=== PATIENT | female | born 1965 | race African-American/Black ===

== ENCOUNTER 2019-02-28 22:24 | Observation (INO) ==
[2019-02-28] MEDS ORDERED: NORMAL SALINE 1,000 ML IV PRN (23:27)
[2019-02-28] MEDS ORDERED: ONDANSETRON HCL/PF 2 MG/ML VIAL IV ONE (23:27)
[2019-02-28] MEDS ORDERED: HYDROmorphone HCL 1 MG/ML DISP.SYRIN IV ONE (23:27)
--- NOTE | 2019-02-28 23:40 | ERNOTE ---
Abdominal HPI - Narrative Date of Service: 02/28/19 - General Chief Complaint: Abdominal Pain Time Seen by Provider: 02/28/19 23:20 Source: patient - Immun/Allergies/Home Medications Immunizatons: IMMUNIZATION HX Immunizations Up to Date Yes History of Influenza Vaccine Yes Hx Pneumococcal Vaccination No Allergies/Adverse Reactions: Allergies codeine Adverse Reaction (Severe, Verified 02/28/19 23:02) Vomiting Home Medications: HOME MEDICATIONS Gabapentin [Neurontin] 600 mg PO TID 02/17/14 [Last Taken Unknown] Insulin Glargine,Hum.rec.anlog [Lantus] 63 units SC HS 02/17/14 [Last Taken Unknown] - History of Present Illness Narrative: This is a 53-year-old female who comes to the emergency department at 11:30 at night complaining of right upper quadrant abdominal pain. The patient says that she was seen earlier today at [facility] by a nurse practitioner in the clinic. She had an ultrasound performed which was concerning for cholecystitis. Apparently the patient went home or was called when she was home and was told to come up here. She was told to come up here if her symptoms got bad. Patient says that her pain is now at thousand out of 10. She has severe right upper quadrant pain. Is been there for at least 6 weeks and never gone away completely. She says it gets much worse after she has food. She says she cannot really eat due to the pain. She denies fever. She denies vomiting or diarrhea. The patient says that she was recently in the hospital at [facility] for 3 months "in a coma" she is complaining of pain in her left shoulder and the left subscapular area. Apparently Dr. Sherman from surgery was contacted by [facility]. Review of Systems - Review of Systems Constitutional: Present: no symptoms reported EYE: Present: no symptoms reported ENT: Present: no symptoms reported Respiratory: Present: no symptoms reported Cardiology: Present: no symptoms reported Gastrointestinal/Abdominal: Present: See HPI Genitourinary: Present: no symptoms reported Musculoskeletal: Present: no symptoms reported Skin: Present: no symptoms reported Neurological: Present: no symptoms reported Endocrine: Present: no symptoms reported Hematologic/Lymphatic: Present: no symptoms reported Psych: Present: no symptoms reported All Other Systems: All systems neg except as marked Medical History (Last Updated 02/28/19 @ 23:04 by Jeri Archer RN) Diabetes High blood pressure Surgical History: Surgical History (Last Updated 02/28/19 @ 23:04 by Jeri Archer RN) Hx of tonsillitis Hx of tubal ligation Social History: (Last Updated 02/28/19 @ 23:04 by Jeri Archer RN) Tobacco: Smoking Status: Former smoker Alcohol: alcohol intake: former Substance Use: substance use type: former substance user Physical Exam - Physical Exam General Appearance: Present: wd/wn, alert, no apparent distress Head Exam: Present: normal inspection, no evidence of injury Eye Exam: Normal inspection: bilateral, PERRL: bilateral, EOMI: bilateral Ears, Nose, Throat: Present: normal ENT inspection, normal pharynx Neck: Present: normal inspection Respiratory: Present: no respiratory distress, normal breath sounds, chest nontender, lungs clear Cardiovascular/Chest: Present: regular rate, rhythm, no murmur Gastrointestinal/Abdominal: Present: normal bowel sounds, nondistended, soft, other - Patient has significant pain to palpation on the right side of her abdomen, right upper much greater than right lower. Positive Urbina sign. Voluntary guarding. No rebound. Back Exam: Present: normal inspection, normal range of motion, no CVA tenderness, no vertebral tenderness Extremity Exam: Present: normal inspection, non-tender, normal range of motion, no edema Neurological Exam: Present: alert, oriented, other - Patient has some abnormal mentation, does not appear to understand questions I asked completely clearly. She relates this to her "being in a coma recently " Skin Exam: Present: normal color, warm/dry Lymphatic Exam: Present: no adenopathy Progress - Results and Orders Patient's Lab Results:: I have reviewed the patient's lab results. - Vital Signs Patient's Vital Signs:: I have reviewed the patient's vital signs. Vital Signs: Vital Signs 02/28/19 22:57 Temperature 36.7 C Pulse Rate 103 H Respiratory Rate 20 Blood Pressure 125/94 H O2 Sat by Pulse Oximetry 100 - CT/Ultrasound CT/Ultrasound Narrative: CT of the abdomen pelvis does not demonstrate any signs of acute intra-abdominal pathology. Does have some gallstones - Progress/Reassessment Chief Complaint: Abdominal Pain Plan - Plan Plan: After I saw the patient and evaluated her I spoke with Dr. Verdugo from surgery. Going to repeat the labs and get a CAT scan of the abdomen. The patient's CT scan is really not remarkable. White blood cell count is slightly elevated 11.1 up from earlier. Because of the degree of right upper quadrant pain I think cholecystitis is possible, but this would be chronic cholecystitis. We will admit the patient to the hospital and observed. Repeat labs in the morning. Dr. Sherman can see the patient in the morning as this is not something which requires emergent surgery CT scan shows stones but no signs of cholecystitis with a great deal of inflammation in the gallbladder fossa. Her white count is barely up at 11.1. It was 7 earlier today. Her symptoms are more consistent with chronic cholecystitis. She does have a Urbina sign. She does not require emergent intervention this evening nor antibiotics for possible infection at this time. I will put in a consult to surgery in the morning. Going to place in observation night. Pain medicine, fluids, nausea medicine as needed Departure Clinical Impression: Abdominal pain Qualifiers: Abdominal location: right upper quadrant Qualified Code(s): R10.11 - Right upper quadrant pain - Departure Disposition: Still a patient Condition: Stable
[2019-02-28 23:41] LABS: Hemoglobin 12.5 gm/dL (12.5-16.0); Mean Cell Volume 78.6 fl (78-100); Mean Corpuscular Hemoglobin 25.2 pg (27-31); Mean Corpuscular Hgb Conc 32.1 g/dl (32-36); Mean Platelet Volume 10.3 fl (8-12.5); Neutrophil # 8.5 K/mm3 (1.3-6.0); Neutrophil % 76.4 % (42-75.0); Platelet Count 257 K/mm3 (150-450); Red Blood Count 4.96 M/mm3 (4.2-5.4); Red Cell Distribution Width 16.5 % (11.5-14.0); White Blood Count 11.1 K/mm3 (4.0-10.5)
[2019-02-28] MEDS ORDERED: DIATRIZOATE MEGLUMINE, SODIUM 30 ML BTL PO ONE (23:43)
[2019-02-28 23:55] LABS: Albumin * 3.3 gm/dl (3.4-5.0); Anion Gap 14.8 mmol/L (6.8-13.8); BUN/Creatinine Ratio 17.6 (9.0-21.6); Bilirubin, Total 0.3 mg/dL (0.0-1.1); Ca. Corrected For Albumin 9.3 mg/dL (8.4-10.2); Calcium * 9.1 mg/dL (7.9-10.9); Carbon Dioxide 24.8 mmol/L (24-32.6); Potassium 3.6 mmol/L (3.4-4.6); Total Protein 7.4 gm/dL (6.2-8.2)
[2019-03-01] MEDS ORDERED: HYDROmorphone HCL 1 MG/ML DISP.SYRIN IV ONE ×2 (02:13→17:30)
[2019-03-01] MEDS ORDERED: ONDANSETRON HCL/PF 2 MG/ML VIAL IV PRN (02:18)
[2019-03-01] MEDS: HYDROmorphone HCL 1 MG/ML DISP.SYRIN IV PRN ×3 (05:52→21:54)
[2019-03-01 07:55] LABS: Hematocrit 36.5 % (37.0-47.0); Hemoglobin 11.6 gm/dL (12.5-16.0); Mean Cell Volume 79.2 fl (78-100); Mean Corpuscular Hemoglobin 25.2 pg (27-31); Mean Corpuscular Hgb Conc 31.8 g/dl (32-36); Mean Platelet Volume 10.5 fl (8-12.5); Neutrophil # 6.6 K/mm3 (1.3-6.0); Neutrophil % 78.8 % (42-75.0); Platelet Count 219 K/mm3 (150-450); Red Blood Count 4.61 M/mm3 (4.2-5.4); Red Cell Distribution Width 16.3 % (11.5-14.0); White Blood Count 8.4 K/mm3 (4.0-10.5)
[2019-03-01 08:06] LABS: Hemoglobin A1C 7.4 % (4.00-6.0)
[2019-03-01 08:07] LABS: Albumin * 3.1 gm/dl (3.4-5.0); Anion Gap 11.7 mmol/L (6.8-13.8); BUN/Creatinine Ratio 15.5 (9.0-21.6); Bilirubin, Total 0.4 mg/dL (0.0-1.1); Calcium * 8.6 mg/dL (7.9-10.9); Carbon Dioxide 25.9 mmol/L (24-32.6); Potassium 3.6 mmol/L (3.4-4.6); Total Protein 6.5 gm/dL (6.2-8.2)
--- NOTE | 2019-03-01 09:29 | HP ---
Chief Complaint - Chief Complaint Date of Service: 03/01/19 Time of Service: 07:30 Chief Complaint: Abdominal pain History of Present Illness: Ailin Deal is a 53-year-old black female who was admitted for right upper quadrant abdominal pain. She was seen in an outpatient clinic in [place] yesterday and had a CT scan done. That radiologist report was of cholelithiasis and thickened gallbladder suggestive of chronic cholecystitis. They contacted Dr. Sherman and he advised her to come to our emergency room for further evaluation. She showed up at 1130 last night and was reevaluated. Repeat CT scan shows a thickened duodenum suggestive of duodenitis. Dr. Sherman went off call at 7:00 this morning so I have referred her case now to Dr. Egan. She continues to be quite uncomfortable with this right upper quadrant pain this morning. She had a fairly good night thanks to several doses of IV morphine. She is n.p.o. She is an insulin-dependent diabetic. Her blood sugar this morning is 203 down from 237 on admission. She has not had any nausea or vomiting. This pain does radiate into her back and upper posterior shoulder. Her other past medical history is uneventful. Medical History (Last Reviewed 03/01/19 @ 02:42 by Navid Haynes RN) Diabetes High blood pressure Surgical History: Surgical History (Last Reviewed 03/01/19 @ 02:42 by Navid Haynes RN) Hx of tonsillitis Hx of tubal ligation Social History: (Last Reviewed 03/01/19 @ 02:42 by Navid Haynes RN) Tobacco: Smoking Status: Former smoker Alcohol: alcohol intake: former Substance Use: substance use type: former substance user Review Of Systems (GEN) - Review of Systems Generalized/Overall Review: Present: Malaise EENTM: Present: No Symptoms Reported Respiratory: Present: No Symptoms Reported Cardiac: Present: No Symptoms Reported Abdominal: Present: Abdominal Pain - In the right upper quadrant Genitourinary: Present: No Symptoms Reported Musculoskeletal: Present: No Symptoms Reported Neurological: Present: No Symptoms Reported Skin: Present: No Symptoms Reported Endocrine: Present: Other - Type 2 insulin-dependent diabetes mellitus Immunizations: IMMUNIZATION HX Immunizations Up to Date Yes History of Influenza Vaccine Yes Hx Pneumococcal Vaccination No Allergies/Adverse Reactions: Allergies Allergy/AdvReac Type Severity Reaction Status Date / Time codeine AdvReac Severe Vomiting Verified 02/28/19 23:02 Home Medications: HOME MEDICATIONS Gabapentin [Neurontin] 600 mg PO TID 02/17/14 [Last Taken Unknown] Insulin Glargine,Hum.rec.anlog [Lantus] 66 units SC HS 02/17/14 [Last Taken Unknown] Insulin Lispro [Humalog] 23 unit SQ TID 03/01/19 [Last Taken Unknown] Exam - Exam Vital Signs: Vital Signs - Last Taken Temp 36.7 C 03/01/19 02:43 Pulse 86 03/01/19 02:43 Resp 14 03/01/19 02:43 BP 143/85 H 03/01/19 02:43 Pulse Ox 99 03/01/19 02:43 Constitutional: Present: Alert, Oriented x3, Cooperative, Well developed, Well nourished, Mild distress, Middle aged, Obese - BMI 32.2 ENT Exam: Present: normal ENT inspection, hearing grossly normal, pharynx normal, TMs normal Eye Exam: bilateral eye: normal inspection, PERRL, EOMI Neck: Present: non-tender, full range of motion, supple, normal inspection, trachea midline Back Exam: Present: normal inspection Breasts: Present: Exam deferred Respiratory: Present: chest non-tender, lungs clear, normal breath sounds, no respiratory distress, no accessory muscle use Cardiovascular/Chest: Present: normal peripheral pulses, regular rate, rhythm, no chest tenderness, no edema, no gallop, no JVD, no murmur, no rub Peripheral Pulses: carotid (R): 2+, carotid (L): 2+, radial (R): 2+, radial (L): 2+ Abdomen: Present: Normal bowel sounds, soft, nontender, nondistended, no rebound tenderness, no hepatospenomegaly, no masses /Rectal: Present: Exam deferred Extremity: Present: normal range of motion, non-tender, normal inspection, no pedal edema, no calf tenderness, normal capillary refill Skin Exam: Present: normal color, warm/dry Lymphatic: Present: no adenopathy 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, normal cerebellar test, no motor/sensory deficits, alert, normal mood/affect Appearance: Present: appropriate appearance, appropriate insight, neat, no memory impairment Eye contact: Present: cooperative, good eye contact, normal speech Thoughts: Present: normal thought pattern, no apparent hallucination Diagnostic Studies: Abnormal Lab Results 02/28/19 02/28/19 03/01/19 Range/Units 23:35 23:35 07:40 WBC 11.1 H (4.0-10.5) K/mm3 Hgb 11.6 L (12.5-16.0) gm/dL Hct 36.5 L (37.0-47.0) % MCH 25.2 L 25.2 L (27-31) pg MCHC 31.8 L (32-36) g/dl RDW 16.5 H 16.3 H (11.5-14.0) % Neutrophils % 76.4 H 78.8 H (42-75.0) % Lymphocytes % 16.2 L 12.0 L (20-51) % Neutrophils # 8.5 H 6.6 H (1.3-6.0) K/mm3 Lymphocytes # 1.00 L (1.5-3.5) k/mm3 Anion Gap 14.8 H (6.8-13.8) mmol/L Random Glucose 239 H (70-110) mg/dL Hemoglobin A1c (4.00-6.0) % ALT 12 L (19-67) U/L Albumin 3.3 L (3.4-5.0) gm/dl 03/01/19 03/01/19 Range/Units 07:40 07:40 WBC (4.0-10.5) K/mm3 Hgb (12.5-16.0) gm/dL Hct (37.0-47.0) % MCH (27-31) pg MCHC (32-36) g/dl RDW (11.5-14.0) % Neutrophils % (42-75.0) % Lymphocytes % (20-51) % Neutrophils # (1.3-6.0) K/mm3 Lymphocytes # (1.5-3.5) k/mm3 Anion Gap (6.8-13.8) mmol/L Random Glucose 204 H (70-110) mg/dL Hemoglobin A1c 7.4 H (4.00-6.0) % ALT (19-67) U/L Albumin 3.1 L (3.4-5.0) gm/dl Laboratory Results WBC 8.4 K/mm3 (4.0-10.5) D 03/01/19 07:40 RBC 4.61 M/mm3 (4.2-5.4) 03/01/19 07:40 Hgb 11.6 gm/dL (12.5-16.0) L 03/01/19 07:40 Hct 36.5 % (37.0-47.0) L 03/01/19 07:40 MCV 79.2 fl (78-100) 03/01/19 07:40 MCH 25.2 pg (27-31) L 03/01/19 07:40 MCHC 31.8 g/dl (32-36) L 03/01/19 07:40 RDW 16.3 % (11.5-14.0) H 03/01/19 07:40 Plt Count 219 K/mm3 (150-450) 03/01/19 07:40 MPV 10.5 fl (8-12.5) 03/01/19 07:40 Immature Gran % (Auto) 0.20 % (0.001-0.429) 03/01/19 07:40 Immature Gran # (Auto) 0.02 K/mm3 (0.000-0.0310) 03/01/19 07:40 Neutrophils % 78.8 % (42-75.0) H 03/01/19 07:40 Lymphocytes % 12.0 % (20-51) L 03/01/19 07:40 Monocytes % 7.8 % (0.0-9) 03/01/19 07:40 Eosinophils % 0.8 % (0.0-3.0) 03/01/19 07:40 Basophils % 0.4 % (0.0-1.0) 03/01/19 07:40 Nucleated RBC % 0.0 k/mm3 (0-1) 03/01/19 07:40 Neutrophils # 6.6 K/mm3 (1.3-6.0) H 03/01/19 07:40 Lymphocytes # 1.00 k/mm3 (1.5-3.5) L 03/01/19 07:40 Monocytes # 0.7 k/mm3 (0.0-1.0) 03/01/19 07:40 Eosinophils # 0.1 k/mm3 (0.0-0.7) 03/01/19 07:40 Absolute Basophils 0.0 k/mm3 (0.0-0.1) 03/01/19 07:40 Sodium 139 mmol/L (132-142) 03/01/19 07:40 Plasma Sodium 141 mmol/L (130-142) 03/01/19 07:40 Potassium 3.6 mmol/L (3.4-4.6) 03/01/19 07:40 Chloride 105 mmol/L (97-106) 03/01/19 07:40 Carbon Dioxide 25.9 mmol/L (24-32.6) 03/01/19 07:40 Anion Gap 11.7 mmol/L (6.8-13.8) 03/01/19 07:40 BUN 11 mg/dL (3-23) 03/01/19 07:40 Creatinine 0.71 mg/dL (0.4-1.4) 03/01/19 07:40 Est GFR (Non-Af Amer) 110 mL/min (60-130) D 03/01/19 07:40 BUN/Creatinine Ratio 15.5 (9.0-21.6) 03/01/19 07:40 Random Glucose 204 mg/dL (70-110) H 03/01/19 07:40 Mean Blood Glucose 160 mg/dL 03/01/19 07:40 Hemoglobin A1c 7.4 % (4.00-6.0) H 03/01/19 07:40 Calcium 8.6 mg/dL (7.9-10.9) 03/01/19 07:40 Calcium Adj for Albumin 9.0 mg/dL (8.4-10.2) 03/01/19 07:40 Total Bilirubin 0.4 mg/dL (0.0-1.1) 03/01/19 07:40 AST 39 U/L (0-48) 03/01/19 07:40 ALT 23 U/L (19-67) 03/01/19 07:40 Alkaline Phosphatase 118 U/L (50-170) 03/01/19 07:40 Total Protein 6.5 gm/dL (6.2-8.2) 03/01/19 07:40 Albumin 3.1 gm/dl (3.4-5.0) L 03/01/19 07:40 Lipase 160 U/L (73-393) 02/28/19 23:35 Assessment/Plan - Narrative Narrative: 1. Keep n.p.o. 2. Refer to Dr. Egan for surgical management 3. Consider HIDA scan 4. Transfer medical management to Dr. Shepherd - Assessment/Plan (1) Abdominal pain Problem: Acute Qualifiers: Abdominal location: right upper quadrant Qualified Code(s): R10.11 - Right upper quadrant pain (2) Cholelithiasis Problem: Chronic Qualifiers: Cholelithiasis location: gallbladder Cholecystitis acuity: chronic Biliary obstruction: without biliary obstruction (3) Chronic cholecystitis Problem: Chronic (4) Duodenitis Problem: Acute (5) Insulin dependent type 2 diabetes mellitus Problem: Chronic
--- NOTE | 2019-03-01 09:33 | CONS ---
- Reason for consultation (1) Abdominal pain Date of Service: 03/01/19 (2) Duodenitis Date of Service: 03/01/19 HPI - General Date of Service: 03/01/19 Narrative: Abdominal pain Possible chronic cholecystitis Duodenitis Source: patient Exam Limitations: no limitations - History of Present Illness Initial Comments: Ailin states that the pain has been occurring for the past month. However it is gotten worse over the last few days. It hurts most in the right upper quadrant and radiates into her back. It is worse after eating. She has nausea without emesis. She feels constipated. She has never felt like this before. She denies taking NSAIDs. She feels worse this morning than she did yesterday. Timing/Duration: other - 1 month Severity: severe Modifying Factors - (Worsens): Reports: eating Modifying Factors - (Improves): Reports: medication, other - None Associated Symptoms: loss of appetite, nausea Allergies/Adverse Reactions: Allergies codeine Adverse Reaction (Severe, Verified 02/28/19 23:02) Vomiting Home Medications: Home Medications Medication Instructions Recorded Last Taken Gabapentin [Neurontin] 600 mg PO TID 02/17/14 Unknown Insulin Glargine,Hum.rec.anlog 66 units SC HS 02/17/14 Unknown [Lantus] Insulin Lispro [Humalog] 23 unit SQ TID 03/01/19 Unknown Procedures Administration of inrssrizpi-ybhskmi-snngqbkws, combined (05/12/12) Application of splint (09/08/11) Esophagogastroduodenoscopy [EGD] with closed biopsy (06/14/11) Medications - Medications Current Medications: Current Medications Hydromorphone HCl (Dilaudid) 1 mg IV Q2H PRN PRN Reason: Pain Stop: 03/31/19 02:31 Last Admin: 03/01/19 05:52 Dose: 1 mg Documented by: Sodium Chloride (Sodium Chloride 0.9%) 1,000 mls @ 999 mls/hr IV .Q1H1M PRN PRN Reason: HYDRATION Stop: 03/30/19 23:28 Last Infusion: 03/01/19 00:30 Dose: Infused Documented by: Review of Systems - Review of Systems Generalized/Overall Review: Present: Weakness, Malaise EENTM: Present: No Symptoms Reported Respiratory: Present: No Symptoms Reported Cardiac: Present: No Symptoms Reported Abdominal: Present: Nausea, Abdominal Pain, Constipation Genitourinary: Present: No Symptoms Reported Musculoskeletal: Present: No Symptoms Reported Neurological: Present: No Symptoms Reported Skin: Present: No Symptoms Reported Endocrine: Present: No Symptoms Reported Physical Examination - Exam Vital Signs: Vital Signs - Last Taken Temp 36.7 C 03/01/19 02:43 Pulse 86 03/01/19 02:43 Resp 14 03/01/19 02:43 BP 143/85 H 03/01/19 02:43 Pulse Ox 99 03/01/19 02:43 O2 Oxygen Delivery Method Room Air Constitutional: Present: Alert, Oriented x3, Cooperative ENT Exam: Present: hearing grossly normal Eye Exam: bilateral eye: normal inspection Neck: Present: supple Breasts: Present: Exam deferred Respiratory: Present: chest non-tender, lungs clear Cardiovascular/Chest: Present: normal peripheral pulses, regular rate, rhythm Abdomen: Present: Normal bowel sounds, soft, tender, positive Urbina sign. 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 Appearance: Present: appropriate appearance, appropriate insight Eye contact: Present: cooperative, good eye contact Thoughts: Present: normal thought pattern - Results and Findings: Lab/Microbiology results last 24 hrs: Abnormal/Pending Laboratory Last 24 HRS 03/01/19 03/01/19 03/01/19 07:40 07:40 07:40 WBC Hgb 11.6 L Hct 36.5 L MCH 25.2 L MCHC 31.8 L RDW 16.3 H Neutrophils % 78.8 H Lymphocytes % 12.0 L Neutrophils # 6.6 H Lymphocytes # 1.00 L Anion Gap Random Glucose 204 H Hemoglobin A1c 7.4 H ALT Albumin 3.1 L 02/28/19 02/28/19 23:35 23:35 WBC 11.1 H Hgb Hct MCH 25.2 L MCHC RDW 16.5 H Neutrophils % 76.4 H Lymphocytes % 16.2 L Neutrophils # 8.5 H Lymphocytes # Anion Gap 14.8 H Random Glucose 239 H Hemoglobin A1c ALT 12 L Albumin 3.3 L - Assessments/Findings (1) Abdominal pain Problem: Acute Qualifiers: Abdominal location: right upper quadrant Qualified Code(s): R10.11 - Right upper quadrant pain (2) Duodenitis Problem: Acute Plan - Plan Plan: US urgently EGD today possible sheri based on US, likely on an outpatient basis Reassuring that white blood cell count decreased. Dr. Melgar ordered a HIDA scan.
[2019-03-01] MEDS ORDERED: CEFOXITIN SODIUM 2 GM in DEXTROSE 5 % IN WATER 100 ML IV ONE ×2 (14:26)
--- NOTE | 2019-03-01 14:36 | ANES ---
Anesthesia Pre Procedure Eval Vitals/Labs: Last Vital Signs Temp 36.6 C 03/01/19 13:34 Pulse 81 03/01/19 13:34 Resp 16 03/01/19 13:34 BP 120/84 03/01/19 13:34 Pulse Ox 96 03/01/19 13:34 Hemoglobin A1c 7.4 % (4.00-6.0) H 03/01/19 07:40 HOME MEDICATIONS Gabapentin [Neurontin] 600 mg PO TID 02/17/14 [Last Taken Unknown] Insulin Glargine,Hum.rec.anlog [Lantus] 66 units SC HS 02/17/14 [Last Taken Unknown] Insulin Lispro [Humalog] 23 unit SQ TID 03/01/19 [Last Taken Unknown] Allergies/Adverse Reactions: Allergies Allergy/AdvReac Type Severity Reaction Status Date / Time codeine AdvReac Severe Vomiting Verified 02/28/19 23:02 - Planned Procedure Planned Procedure: ABD PAIN Medication List Reviewed:: Yes Allergies Verified: Yes Medical History (Last Reviewed 03/01/19 @ 14:33 by Mo Viveros CRNA) Diabetes High blood pressure Surgical History (Last Reviewed 03/01/19 @ 14:33 by Mo Viveros CRNA) Hx of tonsillitis Hx of tubal ligation - Family Anesthesia History Family History:: no untoward family reactions to anesthesia, no familial bleeding tendencies, no family history of clotting disorders, no family history of premature - Airway/Neck/Teeth Within Normal Limits:: Yes Teeth Condition: intact - one lower left loose tooth Mallampatti Score: 3 Thyromental (T-M) distance: > 6 cm Mandibulo Hyoid distance: > 3 cm - Respiratory Respiratory Physical: lungs clear Smoking Status: Former smoker - quit in october 2018 Sleep Apnea currently treated: No Sleep Apnea by current assessment: No - Cardiovascular Tolerate Activity: Fair Heart Sounds: S1 & S2, Regular - Anesthesia Assessment and Plan ASA Class: PS, II Anesthesia Type Plan: General ET
[2019-03-01] MEDS ORDERED: DEXAMETHASONE SODIUM PHOSPHATE 10 MG/ML VIAL ONE (14:44)
[2019-03-01] MEDS ORDERED: ONDANSETRON HCL/PF 2 MG/ML VIAL ONE (14:44)
[2019-03-01] MEDS ORDERED: PROPOFOL VIAL IV ONE (14:44)
[2019-03-01] MEDS ORDERED: KETOROLAC TROMETHAMINE 30 MG/ML VIAL ONE (14:44)
[2019-03-01] MEDS ORDERED: SUCCINYLCHOLINE CHLORIDE 20 MG/ML VIAL ONE (14:45)
[2019-03-01] MEDS ORDERED: BUPIVACAINE HCL/EPINEPHRINE 50 ML VIAL ONE (14:51)
[2019-03-01] MEDS ORDERED: RINGER'S SOLUTION,LACTATED 1,000 ML IV PRN (15:58)
[2019-03-01] MEDS ORDERED: BUPIVACAINE HCL/EPINEPHRINE 50 ML VIAL IJ ONE (15:58)
[2019-03-01] MEDS ORDERED: fentaNYL CITRATE/PF 50 MCG/ML AMPUL ONE (16:37)
--- NOTE | 2019-03-01 16:41 | ANES ---
Post Anesthesia Discharge - Transfer of Care Transfer of Care handoff given to nurse: Yes - Discharge from PACU Discharge from PACU when meets criteria: Yes - Comfortable post fentanyl
--- NOTE | 2019-03-01 16:43 | OR ---
Operative Report - Dictated Report Narrative: Date of Service: 03/01/19 Procedure: laparoscopic cholecystectomy and EGD with biopsy Pre-procedure diagnosis: Acute cholecystitis, thickening of duodenum Post-procedure diagnosis: Acute cholecystitis, normal duodenum Surgeon: Dr. Laura Egan Anesthesia: general Indication for procedure: Ailin is a very pleasant 53-year-old female who has right upper quadrant pain radiating into her back this is been going on for a month but has gotten worse over the last few days. She had a CT scan which showed thickening of the duodenum. She had an ultrasound which showed acute cholecystitis. Description of procedure: After appropriate informed consent was obtained patient was taken to the operating room, placed in the supine position. She was given a dose of Mefoxin preoperatively. General anesthesia was achieved. The patient was prepped and draped in the usual sterile fashion. A 5 mm periumbilical incision was made, hemostat was used to dissect down to the fascia. A Veress needle was inserted, a saline drop test was performed which was satisfactory. The abdomen was insufflated to 15 mmHg. A 5mm blunt trocar was placed at the umbilicus. The camera was inserted, there was no evidence of a trocar injury. An 11 mm trocar was placed in subxiphoid position. A 5 mm trocar was placed in the right upper quadrant. An additional 5 mm trocar was placed in the right upper lateral quadrant The patient was placed in a head up, rotated left position, to facilitate exposure. The gallbladder was identified, and was elevated over the liver. The gallbladder was very inflamed and difficult to grasp. I attempted to aspirate the gallbladder but it would not be aspirated. The cystic duct was identified and was dissected out, this was directly entering the gallbladder. The cystic artery was then identified, it was directly entering the gallbladder. There were 3 clips placed on the stay side of the cystic duct, 1 clip was placed on the gallbladder side, the cystic duct was then transected. The cystic artery had 2 clips placed on the stay side, 1 on the gallbladder side. The EndoShears were used to transect the cystic artery. The gallbladder was then removed from the liver bed using electrocautery. The gallbladder was placed in an Endo Catch bag, and removed through the subxiphoid port. The liver was inspected and hemostasis was achieved. The area over the liver was irrigated until clear. The remainder of the abdomen was inspected and was satisfactory. The xiphoid trocar site was closed with an 0 Vicryl suture using a PMI device. The abdomen was desufflated. Local anesthetic was injected. The incisions were closed with inverted interrupted 4-0 Monocryl sutures. Mastisol and Steri-Strips were applied. Under the same sedation an EGD was done. A lubricated gastroscope was inserted and advanced into the second portion of the duodenum. The scope was slowly withdrawn, the duodenum appeared normal. The scope was withdrawn to the antrum. An antral biopsy was taken. A biopsy for Maki was also taken. The scope was retroflexed, the stomach appeared normal. The body of the stomach also appeared normal. Scope was slowly withdrawn to the GE junction, the Z line appeared normal. The excess air was suctioned and the scope was slowly removed. The patient tolerated the procedure well and was transported to the PACU in satisfactory condition. Estimated blood loss: minimal Complications: none Specimens to pathology: Gallbladder, Maki, Antrum Disposition: She will be admitted back to the floor for observation.
[2019-03-01] MEDS ORDERED: POTASSIUM CHLORIDE 20 MEQ in DEXTROSE 5%-0.5 NORMAL SALINE 990 ML IV SCH (16:45)
[2019-03-01] MEDS ORDERED: HYDROmorphone HCL 2 MG/ML VIAL IV ONE (16:50)
[2019-03-01] MEDS ORDERED: HYDROmorphone HCL 2 MG/ML VIAL ONE (16:58)
[2019-03-01] MEDS: HYDROmorphone HCL 1 MG/ML DISP.SYRIN IM ONE ×2 (16:59→17:15)
[2019-03-01] MEDS ORDERED: INSULIN REGULAR, HUMAN 100 UNITS/ML VIAL SC SCH (17:00)
--- NOTE | 2019-03-01 17:18 | ANES ---
Post Anesthesia Assessment - Vital Signs Vitals: Last Vital Signs Temp 37.1 C 03/01/19 17:05 Pulse 102 H 03/01/19 17:05 Resp 14 03/01/19 17:05 BP 143/88 H 03/01/19 17:05 Pulse Ox 98 03/01/19 17:05 Airway Patency: Normal - Mental Status Level Of Consciousness: Awake, Alert, Appropriate - Pain Level Pain Score: 10 - either snoring or C/co pain 100-100,000,000 on a scale of 0-10 - N/V Assessment Nausea/Vomiting Presence: None Dehydration:: No
[2019-03-01] MEDS: HYDROcodone/ACETAMINOPHEN 1 EACH TABLET PO PRN (19:15)
[2019-03-01] MEDS: IBUPROFEN 800 MG TABLET PO PRN (21:53)
[2019-03-02] MEDS: HYDROcodone/ACETAMINOPHEN 1 EACH TABLET PO PRN ×3 (01:31→20:29)
[2019-03-02] MEDS: IBUPROFEN 800 MG TABLET PO PRN ×2 (04:42→23:14)
--- NOTE | 2019-03-02 08:12 | PN ---
Dictated Progress Note - Date and Time Seen: Date: 03/02/19 Time: 08:11 - Progress Note Narrative: feeling better than yesterday. no n/v. Still having too much pain to go home. doesn't feel ready and doesn't have help at home Vital Signs - Last Taken Temp 36.8 C 03/02/19 06:55 Pulse 88 03/02/19 06:55 Resp 16 03/02/19 06:55 BP 127/77 03/02/19 06:55 Pulse Ox 98 03/02/19 06:55 Culture 03/01/19 16:45 CLOtest - Final Biopsy Imp: POD#1 lap sheri acute sheri Plan: likely dc tomorrow
--- NOTE | 2019-03-02 12:22 | PN ---
Subjective - Date and Time Seen Date: 03/02/19 Time: 10:28 Subjective Narrative: Patient currently states she feels better than she did yesterday, though she is endorsing significant abdominal pain and discomfort still. Patient appears to be comfortable while playing on her phone. Her vital signs been stable she been afebrile. No acute events overnight. Objective - Review of Systems Generalized/Overall Review: Denies: Weakness, Chills, Fever EENTM: Reports: No Symptoms Reported Respiratory: Reports: No Symptoms Reported Cardiac: Reports: No Symptoms Reported Abdominal: Reports: Nausea, Abdominal Pain. Denies: Vomiting Genitourinary Symptoms: Reports: No Symptoms Reported Musculoskeletal Complaints: Reports: No Symptoms Reported Neurological: Reports: No Symptoms Reported Skin: Reports: No Symptoms Reported Endocrine: Reports: No Symptoms Reported - Vitals Vitals: Last Vital Signs Temp 36.4 C 03/02/19 11:26 Pulse 83 03/02/19 11:26 Resp 18 03/02/19 11:26 BP 120/66 03/02/19 11:26 Pulse Ox 98 03/02/19 11:26 - Exam Constitutional: Present: Alert, Oriented x3, Obese ENT Exam: Present: hearing grossly normal, TMs normal. Absent: nasal congestion, nasal drainage Neck: Present: non-tender, supple Respiratory: Present: lungs clear, normal breath sounds Cardiovascular/Chest: Present: regular rate, rhythm, no edema Abdomen: Present: soft, nondistended, tender - Diffuse tenderness throughout. Absent: guarding, rigidity Skin Exam: Present: normal color, warm/dry Appearance: Present: appropriate appearance, appropriate insight Eye contact: Present: cooperative, good eye contact Thoughts: Present: normal thought pattern Assessment/Plan Plan Narrative: Patient's case discussed with Dr. Egan this a.m. Determined that her pain is extensive and intractable and to be better to keep her here 1 more day to transition her from IV pain medicine to oral pain medicine. Will discontinue the hydromorphone and continue the [place] which Dr. Schafer started. She also has ibuprofen as needed. Restarted her insulin at her home regimen as well as a consistent carbohydrate diet. Otherwise her vital signs been stable she is been afebrile. No repeat lab work at this time as her lab work normalized yesterday including a return to normal white count. Patient likely discharged home tomorrow, nurse to call with questions or concerns. - Problems/Diagnosis (1) Abdominal pain Problem: Acute Qualifiers: Abdominal location: right upper quadrant Qualified Code(s): R10.11 - Right upper quadrant pain (2) Chronic cholecystitis Problem: Chronic (3) Insulin dependent type 2 diabetes mellitus Problem: Chronic
[2019-03-02] MEDS: INSULIN LISPRO 100 UNITS/ML VIAL SC SCH (16:59)
[2019-03-02] MEDS: GABAPENTIN 300 MG CAPSULE PO SCH (16:59)
[2019-03-02] MEDS ORDERED: INSULIN GLARGINE,HUM.REC.ANLOG 100 UNITS/ML VIAL SC SCH (21:00)
[2019-03-03] MEDS: HYDROcodone/ACETAMINOPHEN 1 EACH TABLET PO PRN ×2 (05:00→11:28)
[2019-03-03] MEDS: INSULIN LISPRO 100 UNITS/ML VIAL SC SCH (08:07)
[2019-03-03] MEDS: GABAPENTIN 300 MG CAPSULE PO SCH (08:14)
--- NOTE | 2019-03-03 09:21 | PN ---
Dictated Progress Note - Date and Time Seen: Date: 03/03/19 Time: 09: - Progress Note Narrative: pt looks much better. tolerating a diet. sitting up in chair. Vital Signs - Last Taken Temp 36.9 C 03/03/19 06:15 Pulse 81 03/03/19 06:15 Resp 18 03/03/19 06:15 BP 134/75 03/03/19 06:15 Pulse Ox 98 03/03/19 06:15 Culture 03/01/19 16:45 CLOtest - Final Biopsy NAD abd soft, non distended, I clean dry and intact non labored Imp POD#2 lap sheri Plan pt concerned about dc as her grandchildren live with her and are loud and she doesn't think she has a place to rest. Discussed that her pain will continue to improve daily and she should use a stool softener and drink water.
--- NOTE | 2019-03-03 10:47 | DS ---
Date of Discharge:: 03/03/19 Description of Stay: Obtained via chart review. Patient had been having RUQ pain for a month, and CT done in [place] showed cholelithiasis, and she was referred to our facility. She was evaluated by the surgical team, and underwent laparoscopic cholecystectomy and EGD with biopsy on 03/01. She reported significant pain the day after surgery, and stayed an additional night for pain control. On the day of DC, she did not have objective signs of pain, with normal vital signs. She was tolerating a diet, and her incisions were clean, dry, and intact. Procedures Performed: see notes below - laparoscopic cholecystectomy and EGD with biopsy Results and Findings: Lab Pending Results 02/28/19 23:35: WBC 11.1 H, RBC 4.96, Hgb 12.5, Hct 39.0, MCV 78.6, MCH 25.2 L, MCHC 32.1, RDW 16.5 H, Plt Count 257, MPV 10.3, Immature Gran % (Auto) 0.30, Immature Gran # (Auto) 0.03, Neutrophils % 76.4 H, Lymphocytes % 16.2 L, Monocytes % 6.0, Eosinophils % 0.8, Basophils % 0.3, Nucleated RBC % 0.0, Neutrophils # 8.5 H, Lymphocytes # 1.79, Monocytes # 0.7, Eosinophils # 0.1, Absolute Basophils 0.0 02/28/19 23:35: Sodium 140, Plasma Sodium 142, Potassium 3.6, Chloride 104, Carbon Dioxide 24.8, Anion Gap 14.8 H, BUN 15, Creatinine 0.85, Est GFR (Non-Af Amer) 90 D, BUN/Creatinine Ratio 17.6, Random Glucose 239 H, Calcium 9.1, Calcium Adj for Albumin 9.3, Total Bilirubin 0.3, AST 10, ALT 12 L, Alkaline Ph osphatase 103, Total Protein 7.4, Albumin 3.3 L, Lipase 160 03/01/19 07:40: WBC 8.4 D, RBC 4.61, Hgb 11.6 L, Hct 36.5 L, MCV 79.2, MCH 25.2 L, MCHC 31.8 L, RDW 16.3 H, Plt Count 219, MPV 10.5, Immature Gran % (Auto) 0.20, Immature Gran # (Auto) 0.02, Neutrophils % 78.8 H, Lymphocytes % 12.0 L, Monocytes % 7.8, Eosinophils % 0.8, Basophils % 0.4, Nucleated RBC % 0.0, Neutr ophils # 6.6 H, Lymphocytes # 1.00 L, Monocytes # 0.7, Eosinophils # 0.1, Absolute Basophils 0.0 03/01/19 07:40: Sodium 139, Plasma Sodium 141, Potassium 3.6, Chloride 105, Ca rbon Dioxide 25.9, Anion Gap 11.7, BUN 11, Creatinine 0.71, Est GFR (Non-Af Amer) 110 D, BUN/Creatinine Ratio 15.5, Random Glucose 204 H, Calcium 8.6, Calcium Adj for Albumin 9.0, Total Bilirubin 0.4, AST 39, ALT 23, Alkaline Phosphatase 118, Total Protein 6.5, Albumin 3.1 L 03/01/19 07:40: Mean Blood Glucose 160, Hemoglobin A1c 7.4 H 03/01/19 16:45: Pathology Specimen Sent to path Discharge Location: Home Disposition: Home self-care Condition: Stable Discharge Activity: Activity as tolerated Discharge Diet: Low fat/chol Referrals: Laura Egan DO [Staff Physician] - One Week Zaid Melgar DO [Primary Care Provider] - One Week Prescriptions (Any new or edited meds): HYDROcodone/ACETAMINOPHEN [[place] 5-325] 2 ea PO Q6H PRN #24 tab PRN Reason: Moderate Pain (Pain Scale 4-6) Transmission Status: Received by [facility] #[id number] Complete Home Medications List: Complete Home Medication List: Gabapentin [Neurontin] 600 mg PO TID 02/17/14 Insulin Glargine,Hum.rec.anlog [Lantus] 66 units SC HS 02/17/14 Insulin Lispro [Humalog Kwikpen U-100] 23 unit SQ TID 03/01/19 HYDROcodone/ACETAMINOPHEN [[place] 5-325] 2 ea PO Q6H PRN #24 tab 03/03/19
[2019-03-03] MEDS ORDERED: INSULIN LISPRO 100 UNITS/ML VIAL SC SCH (13:00)
[2019-03-03] MEDS ORDERED: GABAPENTIN 600 MG TABLET PO SCH (13:00)
[2019-03-03 15:20] VITALS: BP 141/84
== END 2019-03-03 16:00 | disposition home or self-care (01) ==
LOC: ER 22:24 → MS 22:24
PROVIDERS: ADMIT Family Medicine; ATTEND Family Medicine
DX: G89.18 Other acute postprocedural pain; E11.9 Type 2 diabetes mellitus without complications; K29.80 Duodenitis without bleeding; K80.12 Calculus of gallbladder with acute and chronic cholecystitis without obstruction; Z79.4 Long term (current) use of insulin
CPT/HCPCS: 36415; 74177; 76705; 80053; 83036; 83690; 85025; 87081; 88304; 88305; 88312; 88313; 96372; 96374; 96375; 96376; 99285; G0378; J2405; Q9963; Q9967